=== PATIENT | female | born 1945 | race Caucasian/White ===

== ENCOUNTER 2019-09-23 15:03 | Inpatient (IN) ==
[2019-09-23] MEDS ORDERED: SODIUM CHLORIDE 0.9% 1,000 ML IV STA (15:53)
[2019-09-23 16:49] LABS: Basophils % 0.2 % (0.0-0.8); Hematocrit 30.1 VOL% (35.7-47.0); Hemoglobin 9.2 GM/DL (12.0-16.0); Immature Granulocytes % 0.6 %; Immature Granulocytes Absolute 0.04 #; Lymphocytes # 0.9 10*3/uL (1.4-4.0); Lymphocytes % 14.3 % (21.3-54.2); Mean Corpuscular HGB Conc 30.6 GM/DL (32-36); Mean Corpuscular Volume 88.5 FL (87-102); Mean Platelet Volume 9.4 FL (9.6-12.0); Monocytes % 8.1 % (1.7-12.7); Neutrophils % 76.8 % (38.7-73.9); Platelet Count 146 T/CUMM (130-400); Red Cell Distribution Width 13.9 % (9.3-17.3); White Blood Count 6.2 T/CUMM (4-12)
[2019-09-23 16:50] LABS: Alanine Aminotransferase 10 U/L (13-56); Albumin 2.3 G/DL (3.4-5.0); Alkaline Phosphatase 55 U/L (45-117); Aspartate Amino Transferase 16 U/L (0-37); Bilirubin,Total < 0.39 MG/DL (0.2-1.0); Blood Urea Nitrogen 18 MG/DL (7-18); Calcium 7.1 MG/DL (8.5-10.1); Estimated Glom Filtration Rate 57 ML/MIN; Glucose 103 MG/DL (74-106); Osmolality,Calculated 265.5 MOS/KG (273-304); Total Protein 5.1 G/DL (6.4-8.3)
[2019-09-23 16:53] LABS: Troponin I 0.913 NG/ML (0.00-0.045)
[2019-09-23 16:55] LABS: Partial Thromboplastin Time 28.8 SECS (23.9-33.8)
[2019-09-23] MEDS ORDERED: cefTRIAXone 1,000 MG in SODIUM CHLORIDE 0.9% 100 ML IV STA (17:34)
[2019-09-23] MEDS ORDERED: DILTIAZEM 50 MG/10 ML VIAL IV STA (17:34)
[2019-09-23] MEDS ORDERED: DEXTROSE 50% 25 GM/50 ML VIAL IV PRN (19:08)
[2019-09-23] MEDS ORDERED: GLUCAGON 1 MG VIAL IM PRN (19:08)
[2019-09-23] MEDS ORDERED: ACETAMINOPHEN 325 MG TABLET PO PRN (19:08)
[2019-09-23] MEDS ORDERED: DOCUSATE SODIUM 100 MG CAPSULE PO PRN (19:08)
[2019-09-23] MEDS ORDERED: ONDANSETRON 4 MG/2 ML VIAL IV PRN (19:08)
[2019-09-23] MEDS ORDERED: MECLIZINE 25 MG TABLET PO PRN (19:14)
[2019-09-23] MEDS ORDERED: MAGNESIUM HYDROXIDE SUSP 30 ML UDCUP PO PRN (19:14)
[2019-09-23] MEDS: LEVOFLOXACIN INJ 750 MG in PREMIX 1 EACH IV SCH (22:27)
[2019-09-23] MEDS: ENOXAPARIN 100 MG/ML SYRINGE SUBCUT SCH (22:28)
[2019-09-23] MEDS: METOPROLOL TARTRATE 25 MG TABLET PO SCH (22:29)
[2019-09-23] MEDS: methylPREDNISolone SOD SUC 40 MG/1 ML VIAL IV SCH (22:29)
[2019-09-23] MEDS: traZODone 50 MG TABLET PO SCH (22:29)
[2019-09-23 23:26] LABS: Troponin I 0.951 NG/ML (0.00-0.045)
[2019-09-24 02:30] LABS: Basophils % 0.1 % (0.0-0.8); Hematocrit 31.9 VOL% (35.7-47.0); Hemoglobin 9.8 GM/DL (12.0-16.0); Immature Granulocytes % 0.6 %; Immature Granulocytes Absolute 0.05 #; Lymphocytes # 0.5 10*3/uL (1.4-4.0); Lymphocytes % 5.6 % (21.3-54.2); Mean Corpuscular HGB Conc 30.7 GM/DL (32-36); Mean Corpuscular Volume 88.6 FL (87-102); Mean Platelet Volume 9.1 FL (9.6-12.0); Monocytes % 6.3 % (1.7-12.7); Neutrophils % 87.4 % (38.7-73.9); Platelet Count 154 T/CUMM (130-400); Red Cell Distribution Width 13.9 % (9.3-17.3); White Blood Count 9.1 T/CUMM (4-12)
[2019-09-24 02:49] LABS: Alanine Aminotransferase 15 U/L (13-56); Albumin 2.4 G/DL (3.4-5.0); Alkaline Phosphatase 78 U/L (45-117); Aspartate Amino Transferase 27 U/L (0-37); Bilirubin,Total < 0.39 MG/DL (0.2-1.0); Blood Urea Nitrogen 22 MG/DL (7-18); Calcium 8.2 MG/DL (8.5-10.1); Estimated Glom Filtration Rate 56 ML/MIN; Glucose 115 MG/DL (74-106); HDL Cholesterol 63 MG/DL (40-60); Osmolality,Calculated 263.8 MOS/KG (273-304); Risk Ratio 2.35; Total Protein 6.2 G/DL (6.4-8.3); Triglycerides 70 MG/DL (2-150)
[2019-09-24] MEDS: ENOXAPARIN 100 MG/ML SYRINGE SUBCUT SCH ×3 (08:47→21:59)
[2019-09-24] MEDS: CYANOCOBALAMIN 500 MCG TABLET PO SCH ×2 (08:47→09:03)
[2019-09-24] MEDS: risperiDONE 1 MG TABLET PO SCH ×2 (08:48→16:18)
[2019-09-24] MEDS: ZINC SULFATE 220 MG CAPSULE PO SCH (08:48)
[2019-09-24] MEDS: ESCITALOPRAM 10 MG TABLET PO SCH (08:48)
[2019-09-24] MEDS: lisinopriL 10 MG TABLET PO SCH ×2 (08:48→16:18)
[2019-09-24] MEDS: OXcarbazepine 300 MG TABLET PO SCH ×4 (08:48→16:22)
[2019-09-24] MEDS: METOPROLOL TARTRATE 25 MG TABLET PO SCH ×2 (08:48→21:58)
[2019-09-24] MEDS: ASPIRIN CHEW 81 MG TABLET PO SCH (08:49)
[2019-09-24] MEDS: methylPREDNISolone SOD SUC 40 MG/1 ML VIAL IV SCH ×2 (08:49→21:57)
[2019-09-24] MEDS ORDERED: NON-FORMULARY MEDICATION (Tamoxifen 20 MG) PO SCH (09:00)
[2019-09-24] MEDS ORDERED: PANTOPRAZOLE 40 MG TABLET PO SCH (09:00)
[2019-09-24] MEDS: ALBUTEROL INHALER 18 GM INH SCH ×4 (09:02→18:35)
[2019-09-24] MEDS: ASCORBIC ACID 500 MG TABLET PO SCH (09:03)
[2019-09-24] MEDS: traZODone 50 MG TABLET PO SCH (21:59)
[2019-09-24] MEDS: LEVOFLOXACIN INJ 750 MG in PREMIX 1 EACH IV SCH (21:59)
[2019-09-25] MEDS: ALBUTEROL INHALER 18 GM INH SCH ×4 (02:33→18:02)
[2019-09-25] MEDS: methylPREDNISolone SOD SUC 40 MG/1 ML VIAL IV SCH ×2 (09:31→21:25)
[2019-09-25] MEDS: ENOXAPARIN 100 MG/ML SYRINGE SUBCUT SCH ×2 (09:31→21:27)
[2019-09-25] MEDS: CYANOCOBALAMIN 500 MCG TABLET PO SCH (09:32)
[2019-09-25] MEDS: risperiDONE 1 MG TABLET PO SCH ×2 (09:32→17:25)
[2019-09-25] MEDS: lisinopriL 10 MG TABLET PO SCH ×2 (09:32→17:24)
[2019-09-25] MEDS: ASCORBIC ACID 500 MG TABLET PO SCH (09:32)
[2019-09-25] MEDS: ESCITALOPRAM 10 MG TABLET PO SCH (09:33)
[2019-09-25] MEDS: METOPROLOL TARTRATE 25 MG TABLET PO SCH (09:33)
[2019-09-25] MEDS: ASPIRIN CHEW 81 MG TABLET PO SCH (09:33)
[2019-09-25] MEDS: OXcarbazepine 300 MG TABLET PO SCH ×3 (09:33→17:24)
[2019-09-25] MEDS: LEVOFLOXACIN INJ 750 MG in PREMIX 1 EACH IV SCH (21:26)
[2019-09-25] MEDS: traZODone 50 MG TABLET PO SCH (21:27)
[2019-09-25] MEDS: carvediloL 6.25 MG TABLET PO SCH (21:27)
[2019-09-26] MEDS: ALBUTEROL INHALER 18 GM INH SCH ×4 (00:56→18:27)
[2019-09-26] MEDS: methylPREDNISolone SOD SUC 40 MG/1 ML VIAL IV SCH ×2 (08:09→21:32)
[2019-09-26] MEDS: ENOXAPARIN 100 MG/ML SYRINGE SUBCUT SCH ×2 (08:09→21:32)
[2019-09-26] MEDS: LEVOFLOXACIN 750 MG TABLET PO SCH (08:10)
[2019-09-26] MEDS: ASCORBIC ACID 500 MG TABLET PO SCH (08:10)
[2019-09-26] MEDS: risperiDONE 1 MG TABLET PO SCH ×2 (08:10→18:26)
[2019-09-26] MEDS: lisinopriL 10 MG TABLET PO SCH ×2 (08:10→16:35)
[2019-09-26] MEDS: CYANOCOBALAMIN 500 MCG TABLET PO SCH (08:10)
[2019-09-26] MEDS: carvediloL 6.25 MG TABLET PO SCH ×2 (08:10→21:31)
[2019-09-26] MEDS: ESCITALOPRAM 10 MG TABLET PO SCH (08:10)
[2019-09-26] MEDS: ZINC SULFATE 220 MG CAPSULE PO SCH (08:11)
[2019-09-26] MEDS: OXcarbazepine 300 MG TABLET PO SCH ×3 (08:11→18:26)
[2019-09-26] MEDS: ASPIRIN CHEW 81 MG TABLET PO SCH (08:11)
[2019-09-26 11:25] LABS: Apearance,Urine CLEAR (Clear); Bacteria,Urine Occasional /HPF (Few); Bilirubin,Urine Negative (Negative); Blood, Urine Negative (Negative); Glucose,Urine (UA) Negative (Negative); Hyaline Casts,Urine 9 /LPF (0-3); Ketones,Urine Negative (Negative); Mucus,Urine Occasional /LPF (Occasional); Nitrite,Urine Negative (Negative); Protein,Urine 30 MG/DL; RBC,Urine 2 /HPF (0-4); Squamous Epithelial Cell,Urine Occasional /HPF (0-10); Urine Color Yellow (Yellow); Urine Specific Gravity 1.018 (1.001-1.035); Urine Urobilinogen < 2.0 EU/DL (0.2-1.0); WBC,Urine 2 /HPF (0-6)
[2019-09-26] MEDS: traZODone 50 MG TABLET PO SCH (21:31)
[2019-09-27] MEDS: ALBUTEROL INHALER 18 GM INH SCH ×2 (01:03→06:57)
[2019-09-27] MEDS: ASPIRIN CHEW 81 MG TABLET PO SCH (09:03)
[2019-09-27] MEDS: LEVOFLOXACIN 750 MG TABLET PO SCH (09:03)
[2019-09-27] MEDS: carvediloL 6.25 MG TABLET PO SCH (09:03)
[2019-09-27] MEDS: risperiDONE 1 MG TABLET PO SCH (09:04)
[2019-09-27] MEDS: OXcarbazepine 300 MG TABLET PO SCH (09:04)
[2019-09-27] MEDS: CYANOCOBALAMIN 500 MCG TABLET PO SCH (09:04)
[2019-09-27] MEDS: methylPREDNISolone SOD SUC 40 MG/1 ML VIAL IV SCH (09:04)
[2019-09-27] MEDS: lisinopriL 10 MG TABLET PO SCH (09:04)
[2019-09-27] MEDS: ENOXAPARIN 100 MG/ML SYRINGE SUBCUT SCH (09:04)
[2019-09-27] MEDS: ESCITALOPRAM 10 MG TABLET PO SCH (09:04)
[2019-09-27] MEDS: ASCORBIC ACID 500 MG TABLET PO SCH (09:05)
[2019-09-27 11:43] VITALS: BP 131/72
== END 2019-09-27 12:10 | disposition home or self-care (01) | DRG 177 ==
LOC: EDUNIT# → N.ED 15:03 → N.EDINP 19:08 → SUATTDRO 19:08 → N.2E 21:25
PROVIDERS: ADMIT Internal Medicine; ATTEND Internal Medicine